=== PATIENT | male | born 1995 | race Two or more races ===

== ENCOUNTER 2018-05-29 17:59 | Emergency (ER) | payer OTHER ==
[~2018-05-29] VITALS: Ht 167.6 cm; Wt 68.0 kg
--- NOTE | 2018-05-29 18:25 | NUR ---
ED Nurse Note: pt walked in c/o abd pain . blood sent pt restless unable to urinate will try ermd aware
[2018-05-29 18:27] VITALS: BP 117/58
[2018-05-29] MEDS ORDERED: DiphenhydrAMINE 50mg/ml Inj IVP ONE (18:30)
[2018-05-29] MEDS ORDERED: Metoclopramide 10mg/2ml Inj IVP ONE (18:30)
[2018-05-29] MEDS ORDERED: LORazepam Inj 2mg/ml 1ml IV ONE (18:30)
--- NOTE | 2018-05-29 18:30 | Emergency Room Report ---
History of Present Illness General Chief Complaint: General Complaint Source: Patient Present Illness HPI Patient presents with chest pain. He states it started happening after he had gallbladder surgery a month ago. He also drank alcohol yesterday and some more today. He states he usually gets Ativan to help deal with this pain that he says it is coming from his heart. He feels anxious and short of breath. He has been vomiting but it's not been coffee grounds or blood. He denies any melena. He said the surgery caused problems pancreas also the same time as the problem with his gallbladder. He rates the pain is 8/10 at this time and constant. It causes him to feel quite anxious. He is somewhat short of breath with anxiety. He denies any tingling of his hands feet or the perioral area. Patient denies any drugs. No fevers, chills, palpitations, diarrhea, dysuria, visual changes, headache. No suicidal or homicidal ideation. Allergies: Coded Allergies: No Known Allergies (Unverified , 05/29/18) Patient History Past Medical History: see triage record Past Surgical History: nathaniel Social History: Reports: smoking, alcohol use Social History Narrative Not working Reviewed Nursing Documentation: PMH: Agreed; PSxH: Agreed Nursing Documentation-PMH Past Medical History: No History, Except For Hx Gastrointestinal Problems: Yes - Gallbladder removal Review of Systems All Other Systems: negative except mentioned in HPI Physical Exam Vital Signs Date Time Temp Pulse Resp B/P (MAP) Pulse Ox O2 Delivery O2 Flow Rate FiO2 05/29/18 18:13 96.6 132 24 117/58 99 Room Air Sp02 EP Interpretation: reviewed, normal General Appearance: alert, GCS 15, moderate distress, other - Alcohol on breath Eyes: bilateral eye PERRL, bilateral eye EOMI, bilateral eye Scleral Injection ENT: moist mucus membranes Neck: supple Respiratory: lungs clear, normal breath sounds Cardiovascular #1: no edema, tachycardia Cardiovascular #2: 2+ radial (L) Gastrointestinal: no guarding, no rebound, tenderness - Epigastric, decreased bowel sounds Genitourinary: no CVA tenderness Musculoskeletal: back normal, digits/nails normal, gait/station normal, normal range of motion Neurologic: alert, oriented x3, grossly normal Psychiatric: no suicidal/homicidal ideation, anxious - Climbing off the gurney unable to lay still Skin: no rash Medical Decision Making Diagnostic Impression: Primary Impression: Epigastric pain Additional Impressions: Alcohol abuse Anxiety ER Course Patient presents with abdominal pain vomiting and anxiety. Differential includes acute myocardial infarction, pericarditis, pneumothorax, gastritis, pancreatitis, reflux amongst others. The patient smells of alcohol at this time. The patient will be evaluated with EKG and labs. The patient will be treated with IV hydration, Pepcid, Reglan, Benadryl and Ativan. EKG without injury. Labs with normal white count and H&H. CMP with normal electrolytes, minimal hypokalemia. Elevated CPK. Tox screen negative. Blood alcohol level 33. Patient improved with treatment. Resting calmly. Patient complained of Return of some pain. [place] was given p.o. During discussion of discharge patient says that he needs more Ativan. The patient is given a p.o. dose. Initially when he stated his request he was agitated and jumping off and on the gurney again. After he received a p.o. dose of Ativan he was calm immediately and felt ready to be discharged. 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 Also advised him not to drink alcohol. I suggested that he attend Alcoholics Anonymous or similar type of program. Patient stable for outpatient observation and treatment. Laboratory Tests Test 05/29/18 18:30 White Blood Count 8.8 K/UL (4.8-10.8) Red Blood Count 5.14 M/UL (4.70-6.10) Hemoglobin 15.7 G/DL (14.2-18.0) Hematocrit 45.8 % (42.0-52.0) Mean Corpuscular Volume 89 FL (80-99) Mean Corpuscular Hemoglobin 30.6 PG (27.0-31.0) Mean Corpuscular Hemoglobin Concent 34.4 G/DL (32.0-36.0) Red Cell Distribution Width 11.5 % (11.6-14.8) L Platelet Count 232 K/UL (150-450) Mean Platelet Volume 5.7 FL (6.5-10.1) L Neutrophils (%) (Auto) 69.8 % (45.0-75.0) Lymphocytes (%) (Auto) 22.5 % (20.0-45.0) Monocytes (%) (Auto) 5.8 % (1.0-10.0) Eosinophils (%) (Auto) 0.4 % (0.0-3.0) Basophils (%) (Auto) 1.6 % (0.0-2.0) Urine Color Pale yellow Urine Appearance Clear Urine pH 6.5 (4.5-8.0) Urine Specific [place] 1.010 (1.005-1.035) Urine Protein 1+ (NEGATIVE) H Urine Glucose (UA) Negative (NEGATIVE) Urine Ketones 2+ (NEGATIVE) H Urine Blood 1+ (NEGATIVE) H Urine Nitrite Negative (NEGATIVE) Urine Bilirubin Negative (NEGATIVE) Urine Urobilinogen Normal MG/DL (0.0-1.0) Urine Leukocyte Esterase 1+ (NEGATIVE) H Urine RBC 0-2 /HPF (0 - 0) H Urine WBC 2-4 /HPF (0 - 0) Urine Squamous Epithelial Cells None /LPF (NONE/OCC) Urine Uric Acid Crystals Occasional /LPF (NONE) Urine Bacteria Few /HPF (NONE) Sodium Level 140 MMOL/L (136-145) Potassium Level 3.4 MMOL/L (3.5-5.1) L Chloride Level 99 MMOL/L (98-107) Carbon Dioxide Level 27 MMOL/L (21-32) Anion Gap 14 mmol/L (5-15) Blood Urea Nitrogen 13 mg/dL (7-18) Creatinine 1.1 MG/DL (0.55-1.30) Estimate Glomerular Filtration Rate > 60 mL/min (>60) Glucose Level 103 MG/DL (74-106) Calcium Level 9.5 MG/DL (8.5-10.1) Magnesium Level 1.6 MG/DL (1.8-2.4) L Total Bilirubin 0.6 MG/DL (0.2-1.0) Aspartate Amino Transferase (AST) 49 U/L (15-37) H Alanine Aminotransferase (ALT) 52 U/L (12-78) Alkaline Phosphatase 77 U/L (46-116) Total Creatine Kinase 625 U/L (26-308) H Total Protein 7.7 G/DL (6.4-8.2) Albumin 4.1 G/DL (3.4-5.0) Globulin 3.6 g/dL Albumin/Globulin Ratio 1.1 (1.0-2.7) Lipase 88 U/L (73-393) Urine Opiates Screen Negative (NEGATIVE) Urine Barbiturates Screen Negative (NEGATIVE) Phencyclidine (PCP) Screen Negative (NEGATIVE) Urine Amphetamines Screen Negative (NEGATIVE) Urine Benzodiazepines Screen Negative (NEGATIVE) Urine Cocaine Screen Negative (NEGATIVE) Urine Marijuana (THC) Screen Negative (NEGATIVE) Serum Alcohol 33 mg/dL EKG Diagnostic Results Rate: normal Rhythm: NSR ST Segments: no acute changes Rhythm Strip Diag. Results EP Interpretation: yes Rhythm: NSR, no PVC's, no ectopy Last Vital Signs Date Time Temp Pulse Resp B/P (MAP) Pulse Ox O2 Delivery O2 Flow Rate FiO2 05/29/18 21:00 98.3 05/29/18 21:00 83 20 122/69 99 Room Air Status: improved Disposition: HOME, SELF-CARE Condition: Improved Scripts Acetaminophen (Tylenol) 325 Mg Tablet 650 MG ORAL Q6H PRN for Prn Pain/Headache/Temp > 101, #20 TAB 0 Refills Prov: Timothy Carcamo MD 05/29/18 Mag Hydrox/Al Hydrox/Simeth (MAALOX MAXIMUM STRENGTH SUSP) 355 Ml Oral.susp 30 ML PO Q6HR, #240 ML Prov: Timothy Carcamo MD 05/29/18 Famotidine (PEPCID AC) 20 Mg Tablet 20 MG PO DAILY, #20 TAB Prov: Timothy Carcamo MD 05/29/18 Timothy Carcamo MD May 29, 2018 18:30
[2018-05-29 18:47] LABS: BASOPHILS % (AUTO) 1.6 % (0.0-2.0); EOSINOPHILS % (AUTO) 0.4 % (0.0-3.0); HEMATOCRIT 45.8 % (42.0-52.0); HEMOGLOBIN 15.7 G/DL (14.2-18.0); LYMPHOCYTES % (AUTO) 22.5 % (20.0-45.0); MEAN CORPUSCULAR VOLUME 89 FL (80-99); MONOCYTES % (AUTO) 5.8 % (1.0-10.0); NEUTROPHILS % (AUTO) 69.8 % (45.0-75.0); PLATELET COUNT 232 K/UL (150-450); RED BLOOD COUNT 5.14 M/UL (4.70-6.10); RED CELL DISTRIBUTION WIDTH 11.5 % (11.6-14.8); WHITE BLOOD COUNT 8.8 K/UL (4.8-10.8)
[2018-05-29 18:53] LABS: APPEARANCE,URINE CLEAR; BILIRUBIN, URINE NEGATIVE (NEGATIVE); COLOR,URINE PALE YELLOW; GLUCOSE, URINE (UA) NEGATIVE (NEGATIVE); KETONES,URINE 2+ (NEGATIVE); LEUKOCYTE ESTERASE ,URINE 1+ (NEGATIVE); NITRITE,URINE NEGATIVE (NEGATIVE); PH,URINE 6.5 (4.5-8.0); PROTEIN,URINE 1+ (NEGATIVE); UROBILINOGEN,URINE NORMAL MG/DL (0.0-1.0)
[2018-05-29 18:55] LABS: ANION GAP 14 mmol/L (5-15); BLOOD UREA NITROGEN 13 mg/dL (7-18); CALCIUM 9.5 MG/DL (8.5-10.1); CARBON DIOXIDE 27 MMOL/L (21-32); CHLORIDE 99 MMOL/L (98-107); CREATININE 1.1 MG/DL (0.55-1.30); POTASSIUM 3.4 MMOL/L (3.5-5.1); SODIUM 140 MMOL/L (136-145)
[2018-05-29 18:56] VITALS: BP 123/61
[2018-05-29 18:59] LABS: ALANINE AMINOTRANSFERASE 52 U/L (12-78); ALBUMIN 4.1 G/DL (3.4-5.0); ALBUMIN/GLOBULIN RATIO 1.1 (1.0-2.7); ALKALINE PHOSPHATASE 77 U/L (46-116); ASPARTATE AMINO TRANSFERASE 49 U/L (15-37); BILIRUBIN,TOTAL 0.6 MG/DL (0.2-1.0); CREATINE KINASE 625 U/L (26-308)
--- NOTE | 2018-05-29 19:09 | NUR ---
HAND-OFF: Report given to Veronica KUMAR.
--- NOTE | 2018-05-29 19:15 | NUR ---
ED Nurse Note: RECIEVED REPORT FROM AM NURSE TO RESUME CARE, PT IN BED AWAKE, ALERT AND ORIENTED X 4, PT IS VERY ANXIOUS AND RESTLESS,PT IS SCOOTING TO EDGE OF BED WHILE TALKING TO STAFF, PT DENIES PAIN STATES JUST VERY AGITATED FROM ALCOHOL, PT HAS HX OF THIS AND SEEN BY GI BUT NO RELIEF, PT IS ON CARDIAC MONITORING, HAS PATENT IV LINE IN LEFT AC, WILL RESUME CARE ORDERED AND CONTINUE TO CLOSELY MONITOR.
[2018-05-29] MEDS ORDERED: TYLENOL325 MG ORAL (20:12)
[2018-05-29] MEDS ORDERED: PEPCID AC20 M2 PO (20:12)
[2018-05-29] MEDS ORDERED: MAALOX MAXIMUM355 M1 PO (20:12)
[2018-05-29 20:15] VITALS: BP 122/69
[2018-05-29] MEDS ORDERED: HYDROcodone/Acetamin 5/325 tab ORAL ONE (20:15)
--- NOTE | 2018-05-29 20:30 | NUR ---
ED Nurse Note: PT HAS ORDERS FOR DISCHARGE, PT WAS MEDICATED FOR ABD PAIN AND STATES NOT EFFECTIVE, PT WAS RESTING QUIETLY, AND CALMLY, NOW PT HAS INCREASED AGITATION WITH EHART RATE TO 120 AND SCOOTING OUT OF BED, PT IS VERY RESTLESS AND AGITATED, LYING HORIZONTALLY IN BED, VERY, VERY RESTLESS, MD INFORMED, WILL RE-MEDICATE WITH ATIVAN ORALLY BEFORE D/C TO HOME.
[2018-05-29 21:00] VITALS: BP 122/69
[2018-05-29] MEDS ORDERED: LORazepam 1mg tab ORAL ONE (21:00)
--- NOTE | 2018-05-29 21:00 | NUR ---
ER DISCHARGE NOTE: Patient is cleared to be discharged per ERMD, pt is aox4, on room air, with stable vital signs. pt was given dc and prescription instructions, pt was able to verbalize understanding, pt id band and iv site removed without complications. pt is able to ambulate with steady gait. pt took all belongings. Pt agitation has decreased after meds, pt has family present to drive.
--- NOTE | 2018-05-30 13:33 | Cardiology Report ---
APPROVED REPORT EKG Measurement Heart [id number] Sinus tachycardia with short AL Abnormal ECG
== END 2018-05-29 21:00 | disposition home or self-care (01) ==
LOC: EMR 18:40
DX: R10.13 Epigastric pain (principal); F10.10 Alcohol abuse, uncomplicated; F41.9 Anxiety disorder, unspecified
CPT/HCPCS: 36415; 80053; 80307; 81003; 82550; 83690; 83735; 85025; 93005; 96361; 96374; 96375; 99284; G0480; J1200; J2765; S0028; 80329